=== PATIENT | female | born 1975 | race Caucasian/White ===

== ENCOUNTER 2022-04-02 14:01 | Emergency (ER) | payer MEDICAID ==
[~2022-04-02] VITALS: Ht 170.2 cm; Wt 83.0 kg
[2022-04-02 14:07] VITALS: BP 165/99
--- NOTE | 2022-04-02 14:52 | NUR ---
PER REGISTRATION PT LEFT WITHOUT BEING SEEN, SHE WAS GOING TO PMD OFFICE
== END 2022-04-02 14:53 | disposition left against medical advice (07) ==
LOC: ER 14:02
DX: M79.645 Pain in left finger(s) (principal); Z53.21 Procedure and treatment not carried out due to patient leaving prior to being seen by health care provider
CPT/HCPCS: 73140

== ENCOUNTER 2025-01-07 05:21 | Emergency (ER) | payer MEDICAID ==
[~2025-01-07] VITALS: Ht 170.2 cm; Wt 70.6 kg
[2025-01-07 05:24] VITALS: TEMP 97.2
[2025-01-07 06:10] LABS: BASOPHILS % (AUTO) 0.3 % (0-1); EOSINOPHILS # (AUTO) 1.6 X10'3 (0-0.9); EOSINOPHILS % (AUTO) 15.6 % (0-6); HEMATOCRIT 43.9 % (35.0-45.0); HEMOGLOBIN 14.8 g/dl (12.0-16.0); LYMPHOCYTES # (AUTO) 2.4 X10'3 (1.1-4.8); LYMPHOCYTES % (AUTO) 23.1 % (21-51); MEAN CORPUSCULAR HEMOGLOBIN 29.1 PG (27.0-31.0); MEAN CORPUSCULAR HGB CONC 33.7 g/dL (33.0-36.5); MEAN CORPUSCULAR VOLUME 86.3 FL (78-98); MEAN PLATELET VOLUME 9.4 FL (7.4-10.4); MONOCYTES # (AUTO) 0.8 X10'3 (0-0.9); MONOCYTES % (AUTO) 7.9 % (2-12); NEUTROPHILS # (AUTO) 5.4 X10'3 (1.8-7.7); NEUTROPHILS % (AUTO) 53.1 % (42-75); PLATELET COUNT 344 X10'3 (140-440); RED BLOOD COUNT 5.08 X10'6 (4.20-5.60); RED CELL DISTRIBUTION WIDTH 14.1 % (11.5-14.5); WHITE BLOOD COUNT 10.2 X10'3 (4.5-11.0)
--- NOTE | 2025-01-07 06:17 | Physician Documentation ---
History of Present Illness Chief Complaint: See Chief Complaint Stated Complaint: DIARRHEA,VOMITING Time Seen by MD: 06:09 Mode of Arrival: POV, Ambulatory HPI 49-year-old female who presents to the emergency department with a complaint of seven days of nausea and vomiting with vague abdominal discomfort, patient states he takes trizepitide , however she did not have any symptoms, she also states she was cleaning upon on her property and accidentally splashed some of the water and her face and mouth, she claims that she became ill 3 hours after this, denies any blood in the vomit or stool. Timing/Duration: days Quality/Severity: moderate Location: diffuse Radiation: no radiation Activities on Onset: spontaneous Medication Reconciliation Allergies: Coded Allergies: No Known Allergies (Unverified , 11/26/11) Past Medical History Past Medical History: No Pertinent History Past Surgical History: no surgical history Alcohol Use: None Drug Use: none Lives with: Spouse Lives In: Home Occupation: unemployed Review of Systems Constitutional: Reports: see HPI Gastrointestinal: Reports: abdominal pain, nausea, vomiting, diarrhea Genitourinary: Reports: no symptoms reported Physical Exam Vital Signs: RN Vital Signs have been reviewed: Yes, Temperature: 97.2, Source: Temporal, Heart Rate: 91, Respiratory Rate: 18, BP: 137/94, Pulse Oximetry: 99, Weight: 70.600 Oxygen Flow Rate: 0 Pulse Oximetry Reflects: adequate oxygenation General Appearance: WD/WN, no apparent distress EENT: normal ENT inspection, pharynx normal Neck: normal inspection, full range of motion, supple, non-tender Respiratory: lungs clear, no respiratory distress Chest: no accessory muscle use, chest non-tender Cardiovascular: regular rate, rhythm, no edema Gastrointestinal: tenderness Gastrointestinal Diffuse mild abdominal tenderness without guarding rebounding or mass Progress Results/Orders Results/Orders Vital Signs 01/07/25 01/07/25 01/07/25 05:24 05:50 05:50 Temp 97.2 Pulse 96 91 Resp 15 16 18 B/P (MAP) 124/94 137/94 (108) Pulse Ox 99 99 O2 Flow Rate 0 Laboratory Tests Test 01/07/25 05:43 CBC Comment Chemistry Comments Departure Disposition: HOME / SELF CARE / HOMELESS Impression: Primary Impression: Hypokalemia Additional Impressions: Diarrhea Nausea & vomiting Condition: Stable Discharge Instructions: Diarrhea, Adult, Hypokalemia, Vomiting, Adult Additional Instructions: Please use the antibiotics as directed if you have persisting diarrhea, it is possible you have ingested a bacteria that the Flagyl should cure, if you have bloody stools return to the ER immediately. Referrals: NO PRIMARY CARE PROVIDER (PCP) Prescriptions Metronidazole* (Flagyl*) 500 Mg Tablet 1 TAB PO TID for 7 Days, #21 TAB Prov: NICHOLAS KUHN DO 01/07/25 Potassium Chloride (Klor-Con) 10 Meq Tab.prt.sr 1 TAB PO DAILY for 30 Days, #30 TAB Prov: NICHOLAS KUHN DO 01/07/25 Ondansetron 8mg ODT (Ondansetron Odt) 8 Mg Tab.rapdis 1 TAB PO Q6H for nausea/vomiting for 3 Days, #12 TAB 0 Refills Prov: NICHOLAS KUHN DO 01/07/25 Education Educated: Patient Educated regarding: diagnosis, treatment, prognosis Signature Scribe Signature: None Attestation: Dictated by myself NICHOLAS KUHN DO Jan 07, 2025 06:17
[2025-01-07 06:19] LABS: ALBUMIN 3.2 G/DL (3.4-5.0); ANION GAP 13 (8-16); BLOOD UREA NITROGEN 24 MG/DL (7-18); BUN/CREATININE RATIO 23.1 (10.0-20.0); CHLORIDE 108 MMOL/L (99-107); CREATININE 1.04 MG/DL (0.40-0.90); GLUCOSE 99 MG/DL (70-104); POTASSIUM 3.2 MMOL/L (3.5-5.1); SODIUM 142 MMOL/L (135-145); eCRCL 62 ML/MIN; eGFR 56 ML/MIN
[2025-01-07 06:27] LABS: CALCIUM 8.8 MG/DL (8.5-10.1)
[2025-01-07] MEDS: normal saline 1000ml 1,000 ML IV ONE (06:46)
[2025-01-07] MEDS: ondansetron/PF 4mg/2ml inj IV ONE (06:46)
[2025-01-07 08:43] LABS: ALANINE AMINOTRANSFERASE 29 U/L (12-78); ALBUMIN/GLOBULIN RATIO 0.9 (1.1-1.5); ALKALINE PHOSPHATASE 63 IU/L (46-116); ASPARTATE AMINO TRANSFERASE 18 U/L (10-37); BILIRUBIN,DIRECT 0.1 MG/DL (0-0.3); BILIRUBIN,TOTAL 0.4 MG/DL (0.1-1.0); LIPASE 27 U/L (16-77); TOTAL PROTEIN 6.6 G/DL (6.4-8.2)
[2025-01-07] MEDS ORDERED: POTA-192 PO (09:34)
[2025-01-07] MEDS ORDERED: METR-159 PO (09:34)
[2025-01-07] MEDS ORDERED: ONDA-245 PO (09:34)
[2025-01-07 09:43] VITALS: BP 102/64; PULSE 86; RESP 16; O2SAT 98
== END 2025-01-07 09:42 | disposition home or self-care (01) ==
LOC: ER 05:23
DX: E87.6 Hypokalemia (principal); R19.7 Diarrhea, unspecified; R11.2 Nausea with vomiting, unspecified; Z56.0 Unemployment, unspecified
CPT/HCPCS: 36415; 80048; 80076; 83690; 85025; 96361; 96374; 99285; J2405; J7030